=== PATIENT | female | born 1960 | race Caucasian/White ===

== ENCOUNTER 2017-04-24 13:15 | Day surgery (SDC) | payer BC ==
[2017-04-24] MEDS ORDERED: PROPOFOL 40 ML (15:59)
[2017-04-24] MEDS ORDERED: hydrALAzine 20 MG INJ (16:55)
== END 2017-04-24 16:46 | disposition home or self-care (01) ==
LOC: GIL 13:15
DX: Z12.11 Encounter for screening for malignant neoplasm of colon (principal); K64.8 Other hemorrhoids; I10 Essential (primary) hypertension
CPT/HCPCS: 45378; 93005

== ENCOUNTER 2017-04-24 18:28 | Emergency (ER) | payer SELFPAY, BC | END 2017-04-24 23:37 | disposition left against medical advice (07) | LOC: E/R 18:28 | DX: Z53.21 Procedure and treatment not carried out due to patient leaving prior to being seen by health care provider (principal) ==

== ENCOUNTER 2017-08-18 06:51 | Emergency (ER) | payer BC ==
[2017-08-18 07:38] LABS: ADD MAN DIFF? NO
[2017-08-18 07:43] LABS: BASOPHIL # 0.1 10^3/ul (0.0-0.1); BASOPHILS % 0.7 % (0.0-2.0); EOSINOPHILS # 0.1 10^3/ul (0.0-0.5); EOSINOPHILS % 1.7 % (0.0-7.0); HEMATOCRIT 40.3 % (37.0-47.0); HEMOGLOBIN 13.2 g/dl (12.0-16.0); LYMPHOCYTES # 2.4 10^3/ul (0.8-2.9); MEAN CORPUSCULAR HEMOGLOBIN 29.5 pg (29.0-33.0); MEAN CORPUSCULAR HGB CONC 32.8 g/dl (32.0-37.0); MEAN CORPUSCULAR VOLUME 90.2 fl (82.0-101.0); MEAN PLATELET VOLUME 10.9 fl (7.4-10.4); MONOCYTE # 0.7 10^3/ul (0.3-0.9); MONOCYTES % 10.2 % (0.0-11.0); NEUTROPHIL # 3.8 10^3/ul (1.6-7.5); NEUTROPHILS % 53.3 % (39.0-77.0); PLATELET COUNT 212 10^3/UL (140-415); RED BLOOD COUNT 4.47 10^6/ul (4.20-5.40); RED CELL DISTRIBUTION WIDTH 12.3 % (11.5-14.5)
[2017-08-18 07:43] LABS: WHITE BLOOD COUNT 7.2 10^3/ul (4.8-10.8)
[2017-08-18 07:56] LABS: ADD UMIC NO; UR ASCORBIC ACID NEGATIVE (NEGATIVE); UR BILIRUBIN (Dip) NEGATIVE (NEGATIVE); UR BLOOD (Dip) NEGATIVE (NEGATIVE); UR CLARITY CLEAR (CLEAR); UR COLOR STRAW (YELLOW); UR GLUCOSE (Dip) NEGATIVE (NEGATIVE); UR KETONES (Dip) NEGATIVE (NEGATIVE); UR LEUKOCYTE ESTERASE (Dip) NEGATIVE Leu/ul (NEGATIVE); UR NITRITE (Dip) NEGATIVE (NEGATIVE); UR SPECIFIC GRAVITY (Dip) 1.006 (1.003-1.030); UR TOTAL PROTEIN (Dip) NEGATIVE (NEGATIVE); UR UROBILINOGEN (Dip) NEGATIVE (NEGATIVE)
[2017-08-18 08:11] LABS: ALANINE AMINOTRANSFERASE 39 IU/L (13-69); ALBUMIN/GLOBULIN RATIO 1.25; ALKALINE PHOSPHATASE 91 IU/L (42-121); ANION GAP 13 (8-16); ASPARTATE AMINO TRANSFERASE 27 IU/L (15-46); BILIRUBIN,INDIRECT 0.4 mg/dl (0-1.1); BILIRUBIN,TOTAL 0.4 mg/dl (0.2-1.3); BLOOD UREA NITROGEN 9 mg/dl (7-20); CALCIUM 9.3 mg/dl (8.4-10.2); CARBON DIOXIDE 32 mmol/L (21-31); CHLORIDE 107 mmol/L (97-110); CREATININE 0.73 mg/dl (0.44-1.00); GLUCOSE 104 mg/dl (70-220); LIPASE 62 U/L (23-300); POTASSIUM 3.8 mmol/L (3.5-5.1); SODIUM 148 mmol/L (135-144); TOTAL PROTEIN 7.2 g/dl (6.1-8.1)
[2017-08-18] MEDS: SOD CHLORIDE 0.9% 1,000 ML IV (08:14)
[2017-08-18] MEDS: ONDANSETRON 4 MG INJ IV (08:14)
[2017-08-18] MEDS: FAMOTIDINE 20 MG INJ IV (08:14)
[2017-08-18] MEDS: morphine 4 MG/ML VIAL IV (09:39)
== END 2017-08-18 09:58 | disposition home or self-care (01) ==
LOC: E/R 06:51
DX: R10.13 Epigastric pain (principal); R11.0 Nausea; E87.3 Alkalosis; I10 Essential (primary) hypertension; R40.2142 Coma scale, eyes open, spontaneous, at arrival to emergency department; R40.2252 Coma scale, best verbal response, oriented, at arrival to emergency department; R40.2362 Coma scale, best motor response, obeys commands, at arrival to emergency department
CPT/HCPCS: 36415; 74018; 80053; 81003; 83690; 85025; 96374; 96375; 99284-25